=== PATIENT | male | born 1955 | race Caucasian/White ===

== ENCOUNTER → 2022-05-13 | Outpatient (CLI) | payer OTHER ==
--- NOTE | 2022-05-13 14:06 | XR ---
EXAMINATION TYPE: XR knee complete RT DATE OF EXAM: 05/13/2022 CLINICAL HISTORY: Pain. TECHNIQUE: Three views of the right knee are obtained. COMPARISON: None. FINDINGS: Slight genu varus positioning. There is no acute fracture/dislocation evident in right kne e. Moderate to severe narrowing and spurring lateral tibiofemoral compartment. Mild to moderate narro wing with moderate spurring medial tibial femoral compartment. Severe narrowing and spurring patellof emoral compartment. Meniscal calcifications consistent with chondrocalcinosis. Moderate posterior art erial vascular calcification. Mild to moderate diffuse subcutaneous edema. Overlying clothing or blan ket material noted. IMPRESSION: As Above.
--- NOTE | 2022-05-13 15:18 | XR ---
EXAMINATION TYPE: XR shoulder complete RT DATE OF EXAM: 05/13/2022 3:10 PM INDICATION: Patient age:Male; 67 years old; Reason for study: Rt Shoulder Pain M25.511, Rt Knee Pain M25.561; COMPARISON: None TECHNIQUE: The right shoulder was examined in AP, internally rotated and scapular Y projections. . FINDINGS: Severe degeneration changes of the right shoulder with [id number] articulation with osteophyte form ation of the glenoid and humerus. No evidence of acute fracture. Visualized portions of the chest are grossly unremarkable. IMPRESSION: 1. No acute osseous pathology. 2. Severe osteoarthrosis changes of the right shoulder.
== END | disposition home or self-care (01) ==
LOC: RADXRMAIN 13:12
PROVIDERS: ATTEND Nurse Practitioner Family
DX: M25.511 Pain in right shoulder (principal); M25.561 Pain in right knee

== ENCOUNTER → 2022-06-05 | Outpatient (CLI) | payer OTHER ==
--- NOTE | 2022-06-05 14:35 | CT ---
EXAMINATION TYPE: CT right knee - [facility] Protocol DATE OF EXAM: 06/05/2022 COMPARISON: Right knee x-ray May 13, 2022 HISTORY: Right knee pain and osteoarthritis CT DLP: 468.6 mGycm. Automated Exposure Control for Dose Reduction was Utilized. TECHNIQUE: CT scan of the right lower extremity is performed without contrast. FINDINGS: Exam is for surgical planning and not for diagnostic purposes. Incidental finding of mild c oncentric wall thickening to the bladder greatest superior aspect. Suspect outlet obstruction. There is enlarged prostate consistent with BPH noted. Mild to moderate axial joint space loss and acetabula r spurring of both hips is seen. Osseous structures are demineralized. Images of the right knee show severe narrowing and spurring patellofemoral compartment. There is mode rate to severe narrowing and spurring lateral tibiofemoral compartment. There is mild to moderate michael rowing is severe spurring medial tibial femoral compartment. Mild diffuse subcutaneous edema is prese nt. Images of the bilateral ankles show no significant incidental finding. IMPRESSION: As above.
== END | disposition home or self-care (01) ==
LOC: RADCTMAIN 13:03
PROVIDERS: ATTEND Orthopaedic Surgery
DX: M17.11 Unilateral primary osteoarthritis, right knee (principal)

== ENCOUNTER 2022-07-19 08:21 | Day surgery (SDC) | payer OTHER ==
[2022-07-17 16:06] VITALS: BMI 28.5
[~2022-07-19 08:21] MED LIST: ACETAMINOPHEN TAB 500 MG TAB PO PRN; DEXAMETHASONE SOD PHOSPHATE 10 MG/ML 1 ML VIAL IV PRN; DEXAMETHASONE SOD PHOSPHATE 4 MG/ML 1 ML VIAL IV ONE; DOCUSATE 100 MG CAP PO PRN; FAMOTIDINE 20 MG/2 ML VIAL IVP PRN; HYDROmorphone 0.5 MG/0.5 ML SYRINGE IVP PRN; KETOROLAC 15 MG/ML 1 ML VIAL IVP PRN; LACTATED RINGERS 1,000 ML IV SCH; LIDOCAINE 1% (10MG/ML) FOR IV START INTRADERMA PRN; ONDANSETRON 4 MG/2 ML VIAL IVP ONE; ONDANSETRON 4 MG/2 ML VIAL IVP PRN; ROPIVACAINE 246.25 MG, EPINEPHrine 0.5 MG, KETOROLAC (30 mg/mL) 30 MG, cloNIDine HCL/PF... MISCELLANE PRN; ROPIVACAINE/EPI/CLONIDINE/KET 50 ML SYRINGE MISCELLANE PRN; TRANEXAMIC ACID IN NACL,ISO-OS 1,000 MG in SALINE 1 100ML.BAG IVPB PRN; oxyCODONE ER 10 MG TAB.ER.12H PO PRN
[2022-07-19] MEDS ORDERED: LACTATED RINGERS 1,000 ML IV ONE (09:00)
[2022-07-19 09:10] LABS: Glucose,Whole Blood 247 mg/dL (70-110)
[2022-07-19 10:03] VITALS: BP 154/73; PULSE 62; RESP 16; TEMP 97.6
== END 2022-07-19 09:49 | disposition home or self-care (01) ==
LOC: OR 08:21
PROVIDERS: ATTEND Orthopaedic Surgery
DX: Z53.09 Procedure and treatment not carried out because of other contraindication (principal); M17.11 Unilateral primary osteoarthritis, right knee
CPT/HCPCS: 84132

== ENCOUNTER → 2022-11-19 | Outpatient (CLI) | payer OTHER ==
--- NOTE | 2022-11-19 16:27 | CT ---
EXAMINATION TYPE: CT right knee - [facility] Protocol DATE OF EXAM: 11/19/2022 COMPARISON: None HISTORY: Unilateral primary osteoarthritis-right knee CT DLP: 685 mGycm TECHNIQUE: CT scan of the right lower extremity is performed without contrast. FINDINGS: Exam is for surgical planning and not for diagnostic purposes. Suspect outlet obstruction. There is enlarged prostate consistent with BPH noted. Mild to moderate ax ial joint space loss and acetabular spurring of both hips is seen. Osseous structures are demineraliz ed. Images of the right knee show severe narrowing and spurring patellofemoral compartment. There is moderate to severe narrowing and spurring lateral tibiofemoral compartment. There is mild to moderate narrowing is severe spurring medial tibial femoral compartment. Mild diffuse subcutaneous edema is p resent. Images of the bilateral ankles show no significant incidental finding. IMPRESSION: As above.
== END | disposition home or self-care (01) ==
LOC: RADCTMAIN 13:12
PROVIDERS: ATTEND Orthopaedic Surgery
DX: M17.11 Unilateral primary osteoarthritis, right knee (principal); E10.9 Type 1 diabetes mellitus without complications; I82.401 Acute embolism and thrombosis of unspecified deep veins of right lower extremity; I51.9 Heart disease, unspecified; M25.861 Other specified joint disorders, right knee; J98.4 Other disorders of lung; R60.0 Localized edema; Z95.5 Presence of coronary angioplasty implant and graft; Z79.01 Long term (current) use of anticoagulants

== ENCOUNTER → 2022-12-06 | Outpatient (CLI) | payer OTHER ==
--- NOTE | 2022-12-08 20:00 | CT ---
EXAMINATION TYPE: CT right knee - [facility] Protocol DATE OF EXAM: 12/06/2022 COMPARISON: Previous 06/05/2022 exam. HISTORY: 67-year-old male REPEAT - right knee presurgical screening. M25.[address] DLP: 680 mGycm. Automated exposure control for dose reduction was used. TECHNIQUE: CT of the right knee for surgical planning purposes. Images including scanning through the head in both ankles. Coronal and sagittal reconstructions performed. FINDINGS: There is [id number]-[id number] degenerative change of both hips. Prostatomegaly and 5.4 cm wide. Patulous bilateral inguinal canals. There is severe degenerative change at the right knee especially lateral and patellofemoral compartme nts. Small knee joint effusion. No sizable Layton's cyst. Some asymmetric degenerative change at the left hindfoot noted. IMPRESSION: Severe right knee OA particularly involving the patellofemoral and lateral compartments. Imaging perf ormed for surgical planning purposes.
== END | disposition home or self-care (01) ==
LOC: RADCTMAIN 14:32
PROVIDERS: ATTEND Orthopaedic Surgery
DX: Z01.818 Encounter for other preprocedural examination (principal); M17.11 Unilateral primary osteoarthritis, right knee; E10.9 Type 1 diabetes mellitus without complications

== ENCOUNTER → 2023-08-01 | Outpatient (CLI) | payer OTHER ==
[2023-08-01 14:54] LABS: INR 1.1 (<1.2); Partial Thromboplastin Time 27.6 sec (22.0-30.0); Prothrombin Time 11.5 sec (10.0-12.5)
--- NOTE | 2023-08-01 14:56 | CT ---
EXAMINATION TYPE: CT right knee - [facility] Protocol CT DLP: 709 mGycm, Automated exposure control for dose reduction was used. DATE OF EXAM: 08/01/2023 2:49 PM COMPARISON: 12/06/2022 CT. CLINICAL INDICATION:Male, 68 years old with history of M25.561 PAIN IN RIGHT KNEE; [facility], pre-op right total knee TECHNIQUE: Axial images were obtained of the CT right knee - [facility] Protocol, Additional coronal and sa gittal reformatted images and soft tissue and bone window were obtained for review. Contrast used: mL of , (None if empty) Oral contrast used: (None if empty) FINDINGS: The prostate gland is enlarged measuring 5.4 cm in transverse dimension. Fat-containing inguinal le ias bilaterally. The visualized portion of the hips demonstrate mild osteoarthrosis changes with osteophyte formation of the acetabulum. No acute intrapelvic process. The bony structures of the pelvis are intact. The visualized knee demonstrates osteophyte formation of the tibial plateau, the patella and femoral condyles. There is joint space narrowing and subchondral sclerosis. No evidence of fracture. Visualized ankle demonstrates multifocal osteoarthrosis changes with osteophyte formation and mild prem int space narrowing. No evidence of fractures. IMPRESSION: 1. End-stage osteoarthrosis changes of the right knee. 2. Prostatomegaly correlate serum PSA. 3. Bilateral fat-containing inguinal hernias.
[2023-08-01 18:56] LABS: HCT 44.4 % (39.6-50.0); HGB 14.5 g/dL (13.0-17.0); MCH 31.1 pg (27.0-32.0); MCHC 32.7 g/dL (32.0-37.0); MCV 95.3 FL (80.0-97.0); Mean Platelet Volume 11.1 FL (9.5-12.2); NRBC Per 100 WBC 0 X 10*3/uL (0.00-0.01); Platelet Count 119 X 10*3/uL (140-440); RBC 4.66 X 10*6/uL (4.40-5.60); RDW 14.1 % (11.5-14.5); WBC 4.87 X 10*3/uL (4.50-10.00)
[2023-08-01 19:05] LABS: ALT 37 U/L (10-49); AST 20 U/L (14-35); Albumin 3.9 g/dL (3.8-4.9); Albumin/Globulin Ratio 1.95 Ratio (1.60-3.17); Alkaline Phosphatase 62 U/L (41-126); BUN/Creat Ratio 21.77 Ratio (12.00-20.00); Blood Urea Nitrogen 28.3 mg/dL (9.0-27.0); Calcium 9.3 mg/dL (8.7-10.3); Carbon Dioxide 25.1 mmol/L (21.6-31.8); Chloride 104 mmol/L (96-109); Glucose 166 mg/dL (70-110); Potassium 4.8 mmol/L (3.5-5.5); Sodium 140 mmol/L (135-145); Total Bilirubin 0.5 mg/dL (0.3-1.2); Total Protein 5.9 g/dL (6.2-8.2)
== END | disposition home or self-care (01) ==
LOC: LABPAT 13:39
PROVIDERS: ATTEND Orthopaedic Surgery
DX: Z01.818 Encounter for other preprocedural examination (principal); I44.0 Atrioventricular block, first degree; E11.9 Type 2 diabetes mellitus without complications; M17.11 Unilateral primary osteoarthritis, right knee; K40.20 Bilateral inguinal hernia, without obstruction or gangrene, not specified as recurrent; M24.561 Contracture, right knee; N40.0 Benign prostatic hyperplasia without lower urinary tract symptoms; J98.4 Other disorders of lung; M17.10 Unilateral primary osteoarthritis, unspecified knee; R94.31 Abnormal electrocardiogram [ECG] [EKG]; Z22.322 Carrier or suspected carrier of Methicillin resistant Staphylococcus aureus; Z95.0 Presence of cardiac pacemaker
CPT/HCPCS: 80053; 83036; 85027; 85610; 85730; 87070; 93005

== ENCOUNTER 2023-08-15 08:26 | Day surgery (SDC) | payer OTHER ==
[~2023-08-15 08:26] MED LIST changes: -DEXAMETHASONE SOD PHOSPHATE 4 MG/ML 1 ML VIAL IV ONE; -HYDROmorphone 0.5 MG/0.5 ML SYRINGE IVP PRN; -LACTATED RINGERS 1,000 ML IV SCH; -LIDOCAINE 1% (10MG/ML) FOR IV START INTRADERMA PRN; -ONDANSETRON 4 MG/2 ML VIAL IVP ONE; -ROPIVACAINE 246.25 MG, EPINEPHrine 0.5 MG, KETOROLAC (30 mg/mL) 30 MG, cloNIDine HCL/PF... MISCELLANE PRN; -ROPIVACAINE/EPI/CLONIDINE/KET 50 ML SYRINGE MISCELLANE PRN; +TRANEXAMIC 1,000 MG/100ML-NACL 1,000 MG in SALINE 1 100ML.BAG IV PRN; +TRANEXAMIC 1,000 MG/100ML-NACL 1,000 MG in SALINE 1 100ML.BAG IVPB PRN; -TRANEXAMIC ACID IN NACL,ISO-OS 1,000 MG in SALINE 1 100ML.BAG IVPB PRN
[2023-08-15] MEDS ORDERED: DEXAMETHASONE SOD PHOSPHATE 4 MG/ML 1 ML VIAL IV ONE (08:51)
[2023-08-15] MEDS ORDERED: HYDROmorphone 0.5 MG/0.5 ML SYRINGE IVP PRN ×2 (08:51→13:06)
[2023-08-15] MEDS ORDERED: ONDANSETRON 4 MG/2 ML VIAL IVP ONE (08:51)
[2023-08-15] MEDS: LACTATED RINGERS 1,000 ML IV SCH (09:33)
[2023-08-15 09:35] LABS: Glucose,Whole Blood 112 mg/dL (70-110)
[2023-08-15] MEDS ORDERED: FAMOTIDINE 20 MG/2 ML VIAL ONE (10:00)
[2023-08-15] MEDS ORDERED: fentaNYL (PF) 50 MCG/ML 2 ML AMP ONE (10:00)
[2023-08-15] MEDS ORDERED: SODIUM CHLORIDE 0.9% (PF) 10 ML VIAL ONE (10:00)
[2023-08-15] MEDS ORDERED: MIDAZOLAM 2 MG/2 ML VIAL IVP ONE (10:00)
[2023-08-15] MEDS ORDERED: LIDOCAINE 1% INJ 10MG/ML (20 ML MDV) ONE (10:00)
[2023-08-15] MEDS ORDERED: ROCURONIUM 10 MG/ML (5 ML VIAL) IV ONE (10:00)
[2023-08-15] MEDS ORDERED: GLYCOPYRROLATE 0.2 MG/ML 2 ML VIAL ONE (10:00)
[2023-08-15] MEDS ORDERED: NEOSTIGMINE 1 MG/ML 10 ML VIAL ONE (10:00)
[2023-08-15] MEDS ORDERED: ePHEDrine 50 MG/ML 1 ML VIAL ONE (10:00)
[2023-08-15] MEDS ORDERED: PROPOFOL 10 MG/ML 20 ML VIAL IV ONE (10:00)
[2023-08-15] MEDS ORDERED: ROPIVACAINE 5 MG/ML 30 ML VIAL ONE (10:00)
[2023-08-15] MEDS ORDERED: PHENYLEPHRINE 10 MG/ML VIAL ONE (10:00)
[2023-08-15] MEDS ORDERED: TRANEXAMIC 1,000 MG/100ML-NACL PREMIX BAG ONE (10:00)
[2023-08-15] MEDS ORDERED: SUCCINYLCHOLINE CHLORIDE 200 MG/10 ML VIAL IV ONE (10:00)
--- NOTE | 2023-08-15 10:50 | P.ANPRN ---
Procedure Note - Anesthesia - Nerve Block Performed Right Adductor Canal Single Time Out Performed: Yes Date of Procedure: 08/15/23 Procedure Start Time: 09:59 Procedure Stop Time: 10:06 Location of Patient: PreOp Indication: Acute Post-Operative Pain, Requested by Surgeon Sedation Type: Sedate with meaningful contact maintained Preparation: Sterile Prep, Sterile Dressing Position: Supine Catheter: None Needle Types: Facet Needle Gauge: 20 Ultrasound used to visualize needle placement: Yes Ultrasound used to observe medication spread: Yes Injectate: 0.5% Ropivacaine (see comment for volume) (20 ml + decadron 2 mg) Blood Aspirated: No Pain Paresthesia on Injection Noted: No Resistance on Injection: Normal Image Stored and Saved: Yes Events: Uneventful and Well Tolerated Right iPack Single Time Out Performed: Yes Date of Procedure: 08/15/23 Procedure Start Time: 10:07 Procedure Stop Time: 10:11 Location of Patient: PreOp Indication: Acute Post-Operative Pain, Requested by Surgeon Sedation Type: Sedate with meaningful contact maintained Preparation: Sterile Prep, Sterile Dressing Position: Left Lateral Catheter: None Needle Types: Facet Needle Gauge: 20 Ultrasound used to visualize needle placement: Yes Ultrasound used to observe medication spread: Yes Injectate: 0.5% Ropivacaine (see comment for volume) (10 ml + decadron 2 mg) Blood Aspirated: No Pain Paresthesia on Injection Noted: No Resistance on Injection: Normal Image Stored and Saved: Yes Events: Uneventful and Well Tolerated
[2023-08-15] MEDS: ROPIVACAINE/EPI/CLONIDINE/KET 50 ML SYRINGE MISCELLANE PRN ×2 (10:55→12:10)
[2023-08-15] MEDS ORDERED: VANCOMYCIN 1,000 MG VIAL MISCELLANE ONE ×2 (11:05→12:10)
[2023-08-15] MEDS ORDERED: LACTATED RINGERS 1,000 ML IV ONE (12:30)
[2023-08-15] MEDS ORDERED: HYDROcodone/APAP 10-325MG 1 EACH TAB PO PRN (13:06)
[2023-08-15] MEDS ORDERED: bisacodyL 10 MG SUPP RECTAL PRN (13:06)
[2023-08-15] MEDS ORDERED: diazePAM 5 MG TAB PO PRN (13:06)
[2023-08-15] MEDS ORDERED: HYDROcodone/APAP 5-325MG 1 EACH TAB PO PRN (13:06)
[2023-08-15] MEDS ORDERED: ONDANSETRON 4 MG/2 ML VIAL IVP PRN (13:06)
[2023-08-15] MEDS ORDERED: hydrOXYzine pamoate 25 MG CAP PO PRN (13:06)
[2023-08-15] MEDS ORDERED: NA PHOS,M-B/NA PHOS,DI-BA 133 ML ENEMA RECTAL PRN (13:06)
[2023-08-15] MEDS ORDERED: MAGNESIUM HYDROXIDE 2,400 MG/30 ML CUP PO PRN (13:06)
[2023-08-15] MEDS ORDERED: NALOXONE 0.4 MG/ML 1 ML VIAL IV PRN (13:06)
--- NOTE | 2023-08-15 13:06 | P.OP ---
Date of Procedure: 08/15/23 Preoperative Diagnosis: 1. Severe right knee osteoarthritis with 50 pre-operative flexion contracture 2. Type 2 diabetes with preoperative hemoglobin A1c level of 7.4 3. Heart disease Postoperative Diagnosis: Same Procedure(s) Performed: 1. Right total knee arthroplasty 2. Computer assisted musculoskeletal navigation using CT/MRI images 3. Application of negative pressure incisional wound VAC right knee less than 50 cm (incision measured 15 cm) Implants: 1. [employer] CR Femur Size #4 2. [place] [employer] [place] Tibial Base Size #4 3. [place] [employer] CS poly Size #10 4. [employer] all poly patella, Size #32 Anesthesia: BRADLEYA, regional Surgeon: Sandro Dior Staff Climate Scientist #1: Pj Abarca Estimated Blood Loss (ml): 100 IV fluids (ml): 600 Pathology: none sent Condition: stable Disposition: PACU Indications for Procedure: The patient is a very pleasant 68-year-old male multiple medical problems who has severe posttraumatic right knee osteoarthritis with an associated 50 flexion contracture. The patient was initially scheduled for total knee replacement last year but due to significantly elevated hemoglobin A1c was postponed to allow for improved blood sugar control. Repeat hemoglobin A1c level was between 6 and 7.4. I long discussion with the patient in the office on the potential risks of a knee replacement. He understands that even with improved diabetes control he is still at an increased risk of developing delayed wound healing or deep infection. He voices understanding of this. We also discussed the ramifications of infection and delayed wound healing including the possibility of above-knee amputation and . The patient again voiced his understanding of his increased risk but requested proceeding with a total knee replacement. He made a well-informed decision to proceed with surgery and was cleared by internal medicine. The patient also presented with a severe preoperative flexion contracture. We discussed the postoperative motion is most strongly related to preoperative motion and that while we would try to improve his pre-existing flexion contraction he is at an increased risk for stiffness following surgery. I met with the patient preoperatively in the office setting and discussed treatment of their symptomatic knee arthritis. They failed a long course of nonsurgical treatment and elected to proceed with an elective total knee replacement. I discussed the potential risks and complications at length and gave them ample time to ask questions. Risks discussed included: risks from anesthesia, superficial site surgical infection, acute and/or chronic periprosthetic joint infection, delayed wound healing, drainage, wound necrosis, instability, stiffness, stiffness requiring manipulation and/or revision surg julia, damage to local blood vessels or nerves, aseptic loosening of the implants, extensor mechanism issues including disruption, patellar maltracking, avascular necrosis etc., continued or worsened knee pain, generalized dissatisfaction with surgical outcome, need for revision surgery, an inability to regain preinjury level of function, DVT, PE, other medical complications, and possibly loss of li fe or limb. The patient voiced their understanding that while these are the most common complications other less common complications are possible. They provided both their verbal and written consent to go forward with surgery. Operative Findings: The patient had severe tricompartmental osteoarthritis. After registering the knee with the Potential robotic platform he was found to have a 50 flexion contracture. Osteophytes were debulked, a medial release was performed and the cruciate ligaments were released allowing for improvement of the flexion contracture to 28 before making any bony cuts. Taking additional bone off of the distal femur and proximal tibia as well as an aggressive posterior capsular release allowed a final flexion contracture of [address] in [address]. Description of Procedure: The patient was identified in preoperative holding and the correct operative extremity was verified and marked with a marker. I reviewed the consent form with the patient at length. All of their questions were answered. The patient was given a block by anesthesia. They were then brought back to the operating room. They were transferred onto the operating room table where a general anesthetic, preoperative antibiotics, and tranexamic acid were administered by anesthesia. A tourniquet was applied to the proximal aspect of the operative extremity. The contralateral extremity was padded under the heel and secured to the operating room table with a nonsterile blue towel and tape. The ipsilateral arm was carefully draped across the patient's chest and secured with a pillow and foam. A post was applied over the lateral aspect of the ipsilateral thigh and a bolster was placed under the ipsilateral foot. I verified that the operative extremity was stable and the knee was flexed to 90. The operative extremity was then placed in a leg gomez, nonsterile drapes were applied, and the extremity was prepped and draped sterilely in the standard sterile fashion. Prior to starting surgery timeout was performed identifying the correct patient, operative extremity, and procedure. The leg was then elevated, exsanguinated with an Esmarch bandage, and the tourniquet was inflated. An anterior midline incision was made sharply with a scalpel. Once I had dissected deep to the superficial fascial layer medial and lateral flaps were elevated. A medial parapatellar arthrotomy was created. Upon opening the knee joint there were diffuse arthritic changes in all 3 compartments. The anterior horn of the medial meniscus were sharply released and a medial release was performed around the posterior medial corner of the knee to facilitate retractor placement. The fat pad was excised with electrocautery. The patella was found to be severely arthritic and a provisional cut was made with a sagittal saw to facilitate mobilization of the extensor mechanism during the procedure. Remnants of the ACL and PCL were then excised from the notch. 4 mm pins were then placed within the incision in the medial distal femur and proximal tibia. Arrays were applied to the pins and I verified they were completely tightened. The knee was then registered with the Potential robot and manipulations in implant position were made to balance the knee and opitmize implant position. Using the Adiel robotic saw all cuts were made in accordance with our plan. After all bony fragments had been removed the cuts were verified with the planar probe. The tibia was then subluxed forward and sized. The knee was brought into flexion a nd a lamina [employer] membership sales agent was placed to allow removal of the meniscal remnants both medially and laterally as well as posterior osteophytes. Local anesthetic was then infiltrated around the joint capsule. Trial implants were then placed within the knee. Range of motion and collateral ligament tension was then evaluated. Adjustments in implant size and position were then made accordingly. Once the knee was felt to be appropriately balanced the Adiel pins were removed. The patella was then recut, sized, and punched. A trial patellar button was then placed. With the trial components in place, the patella tracked midline. The femur was then drilled and the trial component removed. The trial tibial component was then appropriately rotated, pinned, and prepared for the keel. All trial components were then removed from the knee. The knee was thoroughly irrigated with pulsatile lavage. Cement with antibiotics was prepared via vacuum mixing in a bowl on the back table. I then hand pressurized cement into the femur and tibia and placed the implants beginning with the tibial base tray and poly liner, femoral component, and finally the patellar button. All extruded cement was removed including from the pin sites. Once the cement had hardened the knee was evaluated one final time with the final polyethylene liner in place. The knee had full extension and flexion and felt stable to varus and valgus stress throughout the arc of motion. The tourniquet was released and with the tourniquet down the patella tracked midline. All bleeders were controlled with electrocautery. The knee was then soaked for 3 minutes with a dilute Betadine soak. The knee was thoroughly irrigated using 3 L of sterile saline and pulsatile lavage. 2 g of vancomycin powder was placed at the level of the joint prior to closure due to his elevated risk of infection. The extensor mechanism was then reapproximated using pop off Vicryl sutures followed by a running barbed suture. The knee was then closed in layers with a 0 strata fix for the deep fascial layer, 2-0 strata fix for the superficial subcutaneous layer and Monocryl and nylon sutures for the skin. Due to the patient's multiple risk factors an incisional wound VAC was applied over the closed incision measuring 15 cm. After connecting the wound VAC to suction there was an excellent seal. I verified that all instrument, sponge, and sharp counts were correct. The patient was then transferred off the operating room table, extubated, and brought to recovery having tolerated the procedure well. Pj Abarca DPM was required for skilled processing assistant due to the complexity of the surgery for positioning, draping, retraction, exposure, placement of implants, closure, and application of dressing. PLAN: The patient can weight-bear as tolerated on the operative extremity. DVT prophylaxis with aspirin 81 mg twice a day based on preoperative risk stratification. The patient will receive 2 doses of postoperative antibiotics and I will discharge him home on doxycycline until his incision heals. Follow- up in the office in 2 weeks for wound check and x-rays of the knee including an AP and lateral.
--- NOTE | 2023-08-15 13:48 | XR ---
EXAMINATION TYPE: XR knee limited RT DATE OF EXAM: 08/15/2023 CLINICAL HISTORY: Right knee pain and arthritis status post total knee replacement. TECHNIQUE: Portable AP and crosstable lateral views of the right knee are obtained immediately posto peratively. COMPARISON: Prior right knee x-ray May 13, 2022 FINDINGS: Metallic hardware from total right knee arthroplasty is seen and appears satisfactory in a lignment and position. There is evidence of recent surgery with diffuse subcutaneous gas and soft t issue swelling noted. IMPRESSION: METALLIC HARDWARE FROM TOTAL KNEE ARTHROPLASTY IS SATISFACTORY IN ALIGNMENT.
[2023-08-15] MEDS: SODIUM CHLORIDE 0.9% 1,000 ML IV SCH (17:08)
[2023-08-15 17:15] LABS: Glucose,Whole Blood 175 mg/dL (70-110)
[2023-08-15] MEDS ORDERED: ALBUTEROL NEBULIZED 2.5 MG/3 ML INHALATION PRN (17:20)
[2023-08-15] MEDS ORDERED: DEXTROSE 50% SYRINGE 50 ML IVP PRN ×2 (17:21)
--- NOTE | 2023-08-15 17:25 | P.CONS ---
History of Present Illness - Reason for Consult Consult date: 08/15/23 - History of Present Illness Patient is a 68-year-old male with history of diabetes insulin-dependent, hypertension, dyslipidemia, DVT/PE on Eliquis, COPD, depression, CAD presenting for elective right total knee arthroplasty. [facility] physicians has been consulted for medical management. Currently patient denies any chest pain, shortness of breath, abdominal pain, nausea, vomiting, urinary or bowel complaints. Only lab available his PSA glucose reaches between 112-175. Vital signs within normal limits, patient currently on room air. Pertinent positives and negatives as discussed in HPI, a complete review of systems was performed and all other systems are negative. Patient seen and examined at bedside. Vital signs reviewed General: nontoxic, no distress, appears at stated age Derm: warm, dry, right knee wound VAC in place Head: atraumatic, normocephalic, symmetric Eyes: EOMI, no lid lag, anicteric sclera, pupils equal round reactive to light ENT: Nose and ears atraumatic Neck: No thyromegaly, supple Mouth: no lip lesion, mucus membranes moist Cardiovascular: S1S2 reg, no murmur, no edema Lungs: clear to auscultation bilateral, no rhonchi, no rales, no wheeze, no accessory muscle use Abdominal: soft, nontender to palpation, no guarding, no appreciable organomegaly Ext: no gross muscle atrophy, muscle strength muscle strength 5 out of 5 in all 4 extremities, no contractures Neuro: CN II-XII grossly intact, patient has chronic dysarthria Psych: Alert, oriented, appropriate affect Assessment/Plan: Status post right knee arthroplasty -Pain control with oral [place] as needed, IV Dilaudid as needed, monitor for sedation -On bowel regimen -CBC and BMP for tomorrow Type 2 diabetes -Continue Lantus 35 units the night -Sliding scale insulin, monitor for hypoglycemia Hypertension-continue lisinopril 10 mg History of heart failure-continue Lasix 40 mg 3 times a day COPD-continue home inhalers Depression/anxiety-continue Paxil 10 mg, and buspirone 15 mg twice a day History of DVT/PE-continue Eliquis 5 mg twice a day Thank you for allowing us to participate in the care of this pleasant patient. Do not hesitate to contact us with questions. Someone can be reached from the [facility] hospitalist group all hours of the day at [phone] or via [employer]. Past Medical History Past Medical History: Asthma, COPD, Diabetes Mellitus, Deep Vein Thrombosis (DVT), GERD/Reflux, Hyperlipidemia, Hypertension, Myocardial Infarction (MO), Osteoarthritis (OA), Pulmonary Embolus (PE), Thyroid Disorder Additional Past Medical History / Comment(s): HISTORY OBTAINED FROM PATIENT AND STAFF AT [facility] multiple blood clots to lungs and legs [place] x2 , ivc filter, ?edema to lower extremities,or chf Last Myocardial Infarction Date:: 2009 History of Any Multi-Drug Resistant Organisms: None Reported Past Surgical History: Cholecystectomy, Coronary Bypass/CABG, Heart Catheterization With Stent, Tonsillectomy Additional Past Surgical History / Comment(s): LAPAROTOMY -ABSCESS DRAINED, RIGHT KNEE SURGERY AT AGE 25, HISTORY OBTAINED FROM PATIENT AND [facility]- NURSE JORDY cardiac stents x4 Past Anesthesia/Blood Transfusion Reactions: No Reported Reaction Date of Last Stent Placement:: 2010 Smoking Status: Never smoker - Past Family History Mother Family Medical History: Unable to Obtain Additional Family Medical History / Comment(s): ADOPTED - NO HISTORY Medications and Allergies Home Medications Medication Instructions Recorded Confirmed Type Acetaminophen [Tylenol Extra 1,000 mg PO BID PRN 07/17/22 08/15/23 History Strength] Albuterol Inhaler [Ventolin Hfa 2 puff INHALATION Q4H PRN 07/17/22 08/15/23 History Inhaler] Apixaban [Eliquis] 5 mg PO BID 07/17/22 08/14/23 History Atorvastatin [Lipitor] 20 mg PO DAILY 07/17/22 08/12/23 History Furosemide [Lasix] 40 mg PO TID 07/17/22 08/12/23 History HYDROcodone/APAP 5-325MG [[place] 1 tab PO DAILY PRN 07/17/22 08/15/23 History 5-325] Insulin Glargine,Hum.rec.anlog 35 unit SQ HS 07/17/22 08/15/23 History [Basaglar Kwikpen U-100] Meloxicam [Mobic] 15 mg PO DAILY 07/17/22 08/14/23 History busPIRone HCL 15 mg PO BID 07/17/22 08/12/23 History glipiZIDE [Glucotrol] 5 mg PO AC-BID 07/17/22 08/15/23 History lisinopriL [Zestril] 10 mg PO QAM 07/17/22 08/12/23 History PARoxetine [Paxil] 10 mg PO QAM 12/25/22 08/12/23 History Saline Nasal Gel [[place] Nasal Gel] 1 applic TOPICAL Q4H PRN 12/26/22 08/12/23 History Allergies Allergy/AdvReac Type Severity Reaction Status Date / Time ciprofloxacin [From Cipro] Allergy Unknown Verified 08/15/23 09:00 phenobarbital Allergy Unknown Verified 08/15/23 09:00 Childhood Sulfa (Sulfonamide Allergy Unknown Verified 08/15/23 09:00 Antibiotics) Childhood FLU VACCINE Allergy Unknown Uncoded 08/15/23 09:00 Childhood Physical Exam Vitals: Vital Signs Temp Pulse Pulse Resp BP Pulse Ox 08/15/23 15:24 97.7 F 76 16 120/73 95 08/15/23 15:00 62 16 123/72 97 08/15/23 14:45 60 16 123/60 97 08/15/23 14:30 80 16 119/70 97 08/15/23 14:15 84 16 104/89 94 L 08/15/23 14:01 86 16 129/65 94 L 08/15/23 13:48 66 16 131/63 99 08/15/23 13:33 74 16 133/62 99 08/15/23 13:15 65 16 133/62 99 08/15/23 13:02 65 16 128/59 99 08/15/23 12:47 97 F L 65 16 135/74 99 08/15/23 10:16 66 16 115/59 99 08/15/23 09:46 98.6 F 64 17 129/60 97 Intake and Output 08/15/23 08/15/23 08/15/23 06:59 14:59 22:59 Intake Total 1050 Output Total 300 Balance 750 Intake: IV 1050 Output: Urine 200 Estimated Blood Loss 100 Other: Weight 97.522 kg 97.522 kg Results Labs: Abnormal Lab Results - Last 24 Hours (Table) 08/15/23 08/15/23 Range/Units 09:31 17:14 POC Glucose (mg/dL) 112 H 175 H (70-110) mg/dL
[2023-08-15] MEDS: INSULIN ASPART (NovoLOG) 100 UNIT/ML VIAL SQ SCH ×2 (17:45→20:47)
[2023-08-15 20:20] LABS: Glucose,Whole Blood 297 mg/dL (70-110)
[2023-08-15] MEDS: APIXABAN 5 MG TAB PO SCH (20:47)
[2023-08-15] MEDS: busPIRone HCl 5 MG TAB PO SCH (20:47)
[2023-08-15] MEDS: FUROSEMIDE 40 MG TAB PO SCH (20:48)
[2023-08-15] MEDS ORDERED: SENNOSIDES-DOCUSATE SODIUM 1 EACH TAB PO SCH (21:00)
[2023-08-15] MEDS ORDERED: INSULIN DETEMIR (LEVEMIR) 100 UNIT/ML SYR SQ SCH (21:00)
[2023-08-15] MEDS ORDERED: ASPIRIN 81 MG PO SCH (21:00)
[2023-08-15] MEDS ORDERED: TEMAZEPAM 15 MG CAP PO PRN (22:00)
[2023-08-16] MEDS: SODIUM CHLORIDE 0.9% 1,000 ML IV SCH ×2 (00:51→12:08)
[2023-08-16 06:13] LABS: Glucose,Whole Blood 234 mg/dL (70-110)
[2023-08-16] MEDS: INSULIN ASPART (NovoLOG) 100 UNIT/ML VIAL SQ SCH ×2 (06:41→12:19)
[2023-08-16 07:16] LABS: ALT 25 U/L (4-49); AST 23 U/L (17-59); African American GFR (CKD) 69 (>60 ml/min/1.73 sqM); Albumin 3.3 g/dL (3.5-5.0); Albumin/Globulin Ratio 1.3; Alkaline Phosphatase 63 U/L (38-126); Anion Gap 13 mmol/L; Blood Urea Nitrogen 29 mg/dL (9-20); Calcium 8.2 mg/dL (8.4-10.2); Carbon Dioxide 23 mmol/L (22-30); Chloride 101 mmol/L (98-107); Globulin 2.5 g/dL; Glucose 234 mg/dL (74-99); Non-African American GFR(CKD) 60 (>60 ml/min/1.73 sqM); Potassium 4.4 mmol/L (3.5-5.1); Sodium 137 mmol/L (137-145); Total Bilirubin 0.5 mg/dL (0.2-1.3); Total Protein 5.8 g/dL (6.3-8.2)
--- NOTE | 2023-08-16 08:20 | P.PN ---
Subjective Progress Note Date: 08/16/23 Patient is doing well this morning. Has minimal pain in his knee. Objective - Vital Signs Vital signs: Vital Signs Temp 98.4 F 08/16/23 01:16 Pulse 72 08/16/23 01:16 Resp 19 08/16/23 01:16 BP 100/64 08/16/23 01:16 Pulse Ox 95 08/16/23 01:16 FiO2 Intake & Output 08/15/23 08/16/23 08/16/23 18:59 06:59 18:59 Intake Total 1050 Output Total 300 800 Balance 750 -800 Weight 97.522 kg Intake: IV 1050 Output: Urine 200 800 Estimated Blood Loss 100 Other: # Voids 0 # Bowel Movements 0 - Exam The patient is resting comfortably in his bed. He is to answer questions. A focused exam lower extremity was conducted. On inspection patient has an intact incisional wound VAC with good seal. His thigh and calf are soft. Distally motor and sensory function are intact. - Labs CBC & Chem 7: 08/16/23 06:22 Labs: Abnormal Lab Results - Last 24 Hours (Table) 08/15/23 08/15/23 08/15/23 Range/Units 09:31 17:14 20:18 BUN (9-20) mg/dL Glucose (74-99) mg/dL POC Glucose (mg/dL) 112 H 175 H 297 H (70-110) mg/dL Calcium (8.4-10.2) mg/dL Total Protein (6.3-8.2) g/dL Albumin (3.5-5.0) g/dL 08/16/23 08/16/23 Range/Units 06:12 06:22 BUN 29 H (9-20) mg/dL Glucose 234 H (74-99) mg/dL POC Glucose (mg/dL) 234 H (70-110) mg/dL Calcium 8.2 L (8.4-10.2) mg/dL Total Protein 5.8 L (6.3-8.2) g/dL Albumin 3.3 L (3.5-5.0) g/dL Assessment and Plan Assessment: Postoperative day #1 status post right total knee arthroplasty, doing well Type 2 diabetes with preoperative hemoglobin A1c level of 7.4 Coronary artery disease Plan: 1. Weight-bear as tolerated right lower extremity, up with assistance and a walker 2. 2 doses of postoperative Ancef followed by antibiotics suppression with doxycycline 100 mg twice a day until his incision heals 3. DVT prophylaxis - resume Eliquis 5mg BID 4. Internal medicine for perioperative medical management - the patient needs tight glycemic control in perioperative period 5. Physical therapy 6. Leave incisional wound VAC in place 7. Dispo: The patient would like to discharge home under the care of a family friend later today. If he passes physical therapy, his pain is controlled, and he is cleared by internal medicine I'm okay with him leaving.
[2023-08-16] MEDS ORDERED: lisinopriL 10 MG TAB PO SCH (09:00)
[2023-08-16] MEDS ORDERED: ATORVASTATIN 20 MG TAB PO SCH (09:00)
[2023-08-16] MEDS ORDERED: PARoxetine 10 MG TAB PO SCH (09:00)
[2023-08-16 09:20] LABS: Basophils # (A) 0.02 X 10*3/uL (0.00-0.10); Basophils % (A) 0.2 %; Eosinophils # (A) 0 X 10*3/uL (0.04-0.35); Eosinophils % (A) 0 %; HCT 40.3 % (39.6-50.0); Lymphocytes # (A) 0.43 X 10*3/uL (0.90-5.00); Lymphocytes % (A) 4.2 %; MCH 31.2 pg (27.0-32.0); MCHC 32.3 g/dL (32.0-37.0); MCV 96.6 FL (80.0-97.0); Mean Platelet Volume 10.9 FL (9.5-12.2); Monocytes # (A) 0.63 X 10*3/uL (0.20-1.00); Monocytes % (A) 6.2 %; NRBC Per 100 WBC 0 X 10*3/uL (0.00-0.01); Neutrophils # (A) 9.02 X 10*3/uL (1.80-7.70); Platelet Count 124 X 10*3/uL (140-440); RBC 4.17 X 10*6/uL (4.40-5.60); RDW 14.6 % (11.5-14.5); WBC 10.14 X 10*3/uL (4.50-10.00)
--- NOTE | 2023-08-16 09:50 | P.DS ---
Providers Date of admission: 08/15/2023 Attending physician: Sandro Dior Consults: 08/15/23 13:06 Consult Physician Routine Consulting Provider: Antonia Oates Consult Reason/Comments: post op medical management, diabetes control Do you want consulting provider notified?: Yes Primary care physician: Raffi Coronado [place] [facility] Course: Patient is a very pleasant 68-year-old male with multiple medical problems who is admitted under my care and taken to the operating room where a right total knee replacement was performed. Following an uncomplicated surgery the patient was transferred to the orthopedic floor in stable condition. He received 2 doses of postoperative IV Ancef and was then started on doxycycline 100 mg twice a day for antibiotic prophylaxis. His home dose of Eliquis was resumed for DVT prophylaxis. Internal medicine was consulted for perioperative medical management and diabetes control. He was transitioned from IV to oral pain medication. On postoperative day #1 he was seen and was doing well. He worked with physical therapy. He was ultimately cleared for discharge home. Plan - Discharge Summary Discharge Rx Participant: No New Discharge Prescriptions: New oxyCODONE HCL/ACETAMINOPHEN [Percocet 5-325 mg] 1 - 2 tab PO Q6HR PRN 7 Days #32 tab PRN Reason: Pain Docusate [Colace] 100 mg PO BID #28 capsule Doxycycline Monohydrate 100 mg PO BID #28 cap Meloxicam [Mobic] 15 mg PO DAILY #30 tab Omeprazole 40 mg PO DAILY #30 cap No Action lisinopriL [Zestril] 10 mg PO QAM Furosemide [Lasix] 40 mg PO TID Apixaban [Eliquis] 5 mg PO BID Albuterol Inhaler [Ventolin Hfa Inhaler] 2 puff INHALATION Q4H PRN PRN Reason: Shortness Of Breath Or Wheezing Acetaminophen [Tylenol Extra Strength] 1,000 mg PO BID PRN PRN Reason: Pain HYDROcodone/APAP 5-325MG [[place] 5-325] 1 tab PO DAILY PRN PRN Reason: Pain Atorvastatin [Lipitor] 20 mg PO DAILY Meloxicam [Mobic] 15 mg PO DAILY glipiZIDE [Glucotrol] 5 mg PO AC-BID busPIRone HCL 15 mg PO BID Insulin Glargine,Hum.rec.anlog [Basaglar Kwikpen U-100] 35 unit SQ HS PARoxetine [Paxil] 10 mg PO QAM Saline Nasal Gel [[place] Nasal Gel] 1 applic TOPICAL Q4H PRN PRN Reason: dryness Discharge Medication List Acetaminophen [Tylenol Extra Strength] 1,000 mg PO BID PRN 07/17/22 [History] Albuterol Inhaler [Ventolin Hfa Inhaler] 2 puff INHALATION Q4H PRN 07/17/22 [History] Apixaban [Eliquis] 5 mg PO BID 07/17/22 [History] Atorvastatin [Lipitor] 20 mg PO DAILY 07/17/22 [History] Furosemide [Lasix] 40 mg PO TID 07/17/22 [History] HYDROcodone/APAP 5-325MG [[place] 5-325] 1 tab PO DAILY PRN 07/17/22 [History] Insulin Glargine,Hum.rec.anlog [Basaglar Kwikpen U-100] 35 unit SQ HS 07/17/22 [History] Meloxicam [Mobic] 15 mg PO DAILY 07/17/22 [History] busPIRone HCL 15 mg PO BID 07/17/22 [History] glipiZIDE [Glucotrol] 5 mg PO AC-BID 07/17/22 [History] lisinopriL [Zestril] 10 mg PO QAM 07/17/22 [History] PARoxetine [Paxil] 10 mg PO QAM 12/25/22 [History] Saline Nasal Gel [[place] Nasal Gel] 1 applic TOPICAL Q4H PRN 12/26/22 [History] Docusate [Colace] 100 mg PO BID #28 capsule 08/16/23 [Rx] Doxycycline Monohydrate 100 mg PO BID #28 cap 08/16/23 [Rx] Meloxicam [Mobic] 15 mg PO DAILY #30 tab 08/16/23 [Rx] Omeprazole 40 mg PO DAILY #30 cap 08/16/23 [Rx] oxyCODONE HCL/ACETAMINOPHEN [Percocet 5-325 mg] 1 - 2 tab PO Q6HR PRN 7 Days #32 tab 08/16/23 [Rx] Follow up Appointment(s)/Referral(s): Sandro Dior MD [Medical Doctor] - 2 Weeks Activity/Diet/Wound Care/Special Instructions: 1. Weight-bear as tolerated on your operative extremity unless instructed otherwise. Use a walker or other assistive device to ambulate. 2. Leave surgical dressing in place. If your dressing becomes saturated with blood, there is drainage, or the dressing becomes loose please contact the office. 3. It is okay to shower with your surgical dressing, but do not submerge in water (no hot tubs, bath's, swimming etc.) 4. Resume your Eliquis (5 mg twice a day) for blood clot prevention 5. While taking [place] or Percocet for pain make sure you're taking a stool softener (Colace) and drink lots of water. 6. Keep all follow-up appointments as scheduled. You will usually be seen in 1-2 weeks following surgery. 7. Please contact the office with any questions or concerns [phone] Discharge Disposition: HOME SELF-CARE
[2023-08-16 09:56] VITALS: BP 100/61; PULSE 74; RESP 17; TEMP 97.8
[2023-08-16] MEDS: FUROSEMIDE 40 MG TAB PO SCH (10:01)
[2023-08-16] MEDS: APIXABAN 5 MG TAB PO SCH (10:01)
[2023-08-16] MEDS: busPIRone HCl 5 MG TAB PO SCH (10:02)
[2023-08-16] MEDS: LACTATED RINGERS 1,000 ML IV SCH (10:10)
[2023-08-16 11:40] LABS: Glucose,Whole Blood 224 mg/dL (70-110)
--- NOTE | 2023-08-16 11:57 | P.PN ---
Subjective Progress Note Date: 08/16/23 Subjective: Patient seen and examined at bedside. No acute events overnight. Pertinent positives and negatives as discussed above, a complete review of systems was performed and all other systems are negative. Vitals Signs Reviewed. General: nontoxic, no distress, appears at stated age Derm: warm, dry, right knee wound VAC in place Head: atraumatic, normocephalic, symmetric Eyes: EOMI, no lid lag, anicteric sclera, pupils equal round reactive to light ENT: Nose and ears atraumatic Neck: No thyromegaly, supple Mouth: no lip lesion, mucus membranes moist Cardiovascular: S1S2 reg, no murmur, no edema Lungs: clear to auscultation bilateral, no rhonchi, no rales, no wheeze, no accessory muscle use Abdominal: soft, nontender to palpation, no guarding, no appreciable organom egaly Ext: no gross muscle atrophy, muscle strength muscle strength 5 out of 5 in all 4 extremities, no contractures Neuro: CN II-XII grossly intact, patient has chronic dysarthria Psych: Alert, oriented, appropriate affect Data Reviewed Today: Pertinent Labs: WBC 10.14, hemoglobin 13, platelet 124, creatinine 1.5, blood glucose range between 224 2 through 34 Imaging: No new imaging Assessment and Plan: Status post right knee arthroplasty -Pain control with oral [place] as needed, IV Dilaudid as needed, monitor for sedation -On bowel regimen Type 2 diabetes -Continue Lantus 35 units the night -Sliding scale insulin, monitor for hypoglycemia Hypertension-continue lisinopril 10 mg History of heart failure-continue Lasix 40 mg 3 times a day COPD-continue home inhalers Depression/anxiety-continue Paxil 10 mg, and buspirone 15 mg twice a day History of DVT-continue Eliquis 5 mg twice a day Patient is medically optimized for discharge. I personally had conversation with [facility] nurse practitioner, and went over discharge medications with her. Thank you for allowing us to participate in the care of this pleasant patient. Do not hesitate to contact us with questions. Someone can be reached from the [facility] hospitalist group all hours of the day at [phone] or via [employer]. Objective - Vital Signs Vital signs: Vital Signs Temp 97.8 F 08/16/23 06:54 Pulse 74 08/16/23 06:54 Resp 17 08/16/23 06:54 BP 100/61 08/16/23 06:54 Pulse Ox 94 L 08/16/23 06:54 FiO2 Intake & Output 08/15/23 08/16/23 08/16/23 18:59 06:59 18:59 Intake Total 1050 Output Total 300 800 Balance 750 -800 Weight 97.522 kg Intake: IV 1050 Output: Urine 200 800 Estimated Blood Loss 100 Other: # Voids 0 # Bowel Movements 0 - Labs CBC & Chem 7: 08/16/23 06:22 08/16/23 06:22 Labs: Abnormal Lab Results - Last 24 Hours (Table) 08/15/23 08/15/23 08/16/23 Range/Units 17:14 20:18 06:12 WBC (4.50-10.00) X 10*3/uL RBC (4.40-5.60) X 10*6/uL RDW (11.5-14.5) % Plt Count (140-440) X 10*3/uL Neutrophils # (1.80-7.70) X 10*3/uL Lymphocytes # (0.90-5.00) X 10*3/uL Eosinophils # (0.04-0.35) X 10*3/uL BUN (9-20) mg/dL Glucose (74-99) mg/dL POC Glucose (mg/dL) 175 H 297 H 234 H (70-110) mg/dL Hemoglobin A1c (<=6.0) % Calcium (8.4-10.2) mg/dL Total Protein (6.3-8.2) g/dL Albumin (3.5-5.0) g/dL 08/16/23 08/16/23 08/16/23 Range/Units 06:22 06:22 06:22 WBC 10.14 H (4.50-10.00) X 10*3/uL RBC 4.17 L (4.40-5.60) X 10*6/uL RDW 14.6 H (11.5-14.5) % Plt Count 124 L (140-440) X 10*3/uL Neutrophils # 9.02 H (1.80-7.70) X 10*3/uL Lymphocytes # 0.43 L (0.90-5.00) X 10*3/uL Eosinophils # 0 L (0.04-0.35) X 10*3/uL BUN 29 H (9-20) mg/dL Glucose 234 H (74-99) mg/dL POC Glucose (mg/dL) (70-110) mg/dL Hemoglobin A1c 7.4 H (<=6.0) % Calcium 8.2 L (8.4-10.2) mg/dL Total Protein 5.8 L (6.3-8.2) g/dL Albumin 3.3 L (3.5-5.0) g/dL 08/16/23 Range/Units 11:39 WBC (4.50-10.00) X 10*3/uL RBC (4.40-5.60) X 10*6/uL RDW (11.5-14.5) % Plt Count (140-440) X 10*3/uL Neutrophils # (1.80-7.70) X 10*3/uL Lymphocytes # (0.90-5.00) X 10*3/uL Eosinophils # (0.04-0.35) X 10*3/uL BUN (9-20) mg/dL Glucose (74-99) mg/dL POC Glucose (mg/dL) 224 H (70-110) mg/dL Hemoglobin A1c (<=6.0) % Calcium (8.4-10.2) mg/dL Total Protein (6.3-8.2) g/dL Albumin (3.5-5.0) g/dL
== END 2023-08-16 13:39 | disposition home or self-care (01) ==
LOC: OR 08:26 → 4SSUR 14:42 → OR 08-16 13:39
PROVIDERS: ATTEND Orthopaedic Surgery
DX: M17.11 Unilateral primary osteoarthritis, right knee (principal); E11.9 Type 2 diabetes mellitus without complications; E78.5 Hyperlipidemia, unspecified; F32.A Depression, unspecified; F41.9 Anxiety disorder, unspecified; I11.0 Hypertensive heart disease with heart failure; I50.9 Heart failure, unspecified; I25.2 Old myocardial infarction; I25.10 Atherosclerotic heart disease of native coronary artery without angina pectoris; J44.9 Chronic obstructive pulmonary disease, unspecified; Z79.01 Long term (current) use of anticoagulants; Z79.1 Long term (current) use of non-steroidal anti-inflammatories (NSAID); Z79.4 Long term (current) use of insulin; Z79.84 Long term (current) use of oral hypoglycemic drugs; Z79.899 Other long term (current) drug therapy; Z86.711 Personal history of pulmonary embolism; Z86.718 Personal history of other venous thrombosis and embolism; Z88.1 Allergy status to other antibiotic agents; Z88.2 Allergy status to sulfonamides; Z88.7 Allergy status to serum and vaccine; Z95.5 Presence of coronary angioplasty implant and graft; Z95.1 Presence of aortocoronary bypass graft
CPT/HCPCS: 0055T; 27447; 64448; S2900; 64447; 64999; 80053; 83036; 85025